=== PATIENT | female | born 1950 | race Caucasian/White ===

== ENCOUNTER 2019-10-27 13:04 | Emergency (ER) | payer MEDICARE, SELFPAY ==
--- NOTE | 2019-10-27 13:21 | ED.FEMALEGU ---
HPI - Female Genitourinary General Chief complaint: Urogenital-Female Stated complaint: uti Time Seen by Provider: 10/27/19 13:21 Source: patient and RN notes reviewed Mode of arrival: ambulatory Limitations: no limitations History of Present Illness HPI Narrative: This is a 69 years old female presents to the office for an evaluation of possible UTI. Onset about a month ago; however she has been putting it off due to family matters. Symptoms include urinary frequency, urgency with urinary pain. She is from [place] and plan on going back next week. Related Data Home Medications Medication Instructions Recorded Confirmed amlodipine 5 mg PO DAILY 10/27/19 10/27/19 bupropion HCl [Wellbutrin SR] 150 mg PO QAM 10/27/19 10/27/19 metoprolol tartrate 50 mg PO DAILY 10/27/19 10/27/19 Allergies Allergy/AdvReac Type Severity Reaction Status Date / Time No Known Allergies Allergy Verified 10/27/19 13:25 Review of Systems Review of Systems: Narrative: CONSTITUTIONAL: Denies fever, chills ENT: Denies rhinorrhea, congestion, sore throat CARDIOVASCULAR: Denies chest pain, palpitation RESPIRATORY: Denies dyspnea, wheezing GASTROINTESTINAL: Denies abdominal pain, nausea, vomiting, diarrhea. GENITOURINARY: urinary frequency, urgency. Denies blood/vaginal discharge. SKIN: Denies rash MUSCULOSKELETAL: Denies acute joints pain NEUROLOGIC: Denies lightheaded All other systems reviewed are negative, except as documented in HPI. [facility] Past Medical History Medical History (Updated 10/27/19 @ 13:48 by MIGNON Matthews) Depression HTN (hypertension) Social History Social History Gender identity (if verbalized by the patient): Female Comments At time of signature, I agree with nursing past medical, surgical, social and family history. There is no relevant family history pertinent to the presenting complaint. Exam Narrative: Exam Narrative: GENERAL: This is a well-nourished, well-developed patient, in no apparent distress. CARDIOVASCULAR: Regular rate and rhythm without murmurs, gallops, or rubs. RESPIRATORY: Clear to auscultation. Breath sounds equal bilaterally. No wheezes, rales, or rhonchi. GASTROINTESTINAL: Abdomen soft, non-tender, nondistended. Bowel sounds are active. No hepato-splenomegaly, or palpable masses. No guarding. SKIN: warm, intact with no suspicious lesions or rash, good texture and turgor. NEURO: awake, alert, and oriented to person, place and time. There were no obvious focal neurologic abnormalities. Steady gait [place] Coma Scale Eye Opening: Spontaneous 4 [place] Coma Scale Motor: Obeys Commands 6 [place] Coma Scale Verbal: Oriented 5 Course Vital Signs Vital signs: Vital Signs Temperature 98.5 F 10/27/19 13:22 Pulse Rate 74 10/27/19 13:22 Respiratory Rate 10/27/19 13:22 Blood Pressure 118/72 10/27/19 13:22 Pulse Oximetry 98 10/27/19 13:22 Temperature 98.5 F 10/27/19 13:22 Pulse Rate 74 10/27/19 13:22 Respiratory Rate 20 10/27/19 13:22 Blood Pressure 118/72 10/27/19 13:22 Pulse Oximetry 98 10/27/19 13:22 MDM - Female Genitourinary MDM Narrative Medical decision making narrative: Discharge instructions reviewed with patient, as well as provided in writing per nursing staff. The instructions also include specific and strict return/GO TO THE ER as well as f/u information. All questions have been answered, and the patient deny any further questions with discharge and discharge plan. Differential Diagnosis Differential diagnosis: Likely urinary tract infection, cervicitis, vaginitis and cystitis Lab Data Labs: Urine Glucose Negative Reference Range: Negative Urine Bilirubin 1+ Reference Range: Negative Urine Ketone Negative Reference Range: Negative Urine Specific [place] 1.030 Reference Range:1.001-1.
[2019-10-27 13:22] VITALS: BP 118/72; PULSE 74; RESP 20; TEMP 36.9; O2SAT 98
--- NOTE | 2019-10-29 12:17 | PC.NURSE ---
Culture shows susceptibility to Cipro.
== END 2019-10-27 13:57 | disposition home or self-care (01) ==
PROVIDERS: Emergency Provider Nurse Practitioner
DX: N30.01 Acute cystitis with hematuria (principal); F32.9 Major depressive disorder, single episode, unspecified; I10 Essential (primary) hypertension
CPT/HCPCS: 81003; 87077; 87086; 87088; 87186; 99213; G0463